=== PATIENT | female | born 1955 | race Two or more races ===

== ENCOUNTER 2016-11-28 14:24 | Emergency (ER) | payer BC, MEDICAID ==
[~2016-11-28] VITALS: Ht 157.5 cm; Wt 71.2 kg
[2016-11-28 14:24] VITALS: BP 151/80
== END 2016-11-28 15:38 | disposition home or self-care (01) ==
LOC: ER 14:26
DX: L03.031 Cellulitis of right toe (principal); M10.9 Gout, unspecified
CPT/HCPCS: A4606; Z7610

== ENCOUNTER 2016-12-03 11:44 | Emergency (ER) | payer BC, MEDICAID ==
[~2016-12-03] VITALS: Ht 157.5 cm; Wt 71.7 kg
[2016-12-03 11:47] VITALS: BP 123/70
[2016-12-03] MEDS ORDERED: KETOROLAC TROMETHAMINE INJ 30 MG/ML VIAL ONE (12:23)
[2016-12-03] MEDS ORDERED: MORPHINE SULFATE INJ 4 MG/ML DISP.SYRIN ONE (12:24)
[2016-12-03] MEDS ORDERED: ONDANSETRON 4 MG TAB.RAPDIS ONE (12:24)
[2016-12-03] MEDS ORDERED: ONDANSETRON 4 MG TAB.RAPDIS SL ONE (12:30)
[2016-12-03] MEDS ORDERED: KETOROLAC TROMETHAMINE INJ 60 MG/2 ML VIAL IM ONE (12:30)
[2016-12-03] MEDS ORDERED: MORPHINE SULFATE INJ 2 MG/ML DISP.SYRIN IM ONE (12:30)
== END 2016-12-03 13:25 | disposition home or self-care (01) ==
LOC: ER 11:48
DX: M54.42 Lumbago with sciatica, left side (principal); G89.29 Other chronic pain; M10.9 Gout, unspecified
CPT/HCPCS: 96372 ×2; 99284; A4606; J1885; J2270; Q0162; Z7610

== ENCOUNTER 2016-12-16 20:09 | Emergency (ER) | payer MEDICAID ==
[~2016-12-16] VITALS: Ht 157.5 cm; Wt 70.3 kg
[2016-12-16 20:16] VITALS: BP 127/79
== END 2016-12-16 21:12 | disposition home or self-care (01) ==
LOC: ER 20:11
DX: M79.675 Pain in left toe(s) (principal); J45.909 Unspecified asthma, uncomplicated; M10.9 Gout, unspecified; M19.90 Unspecified osteoarthritis, unspecified site
CPT/HCPCS: A4606; Z7610

== ENCOUNTER 2017-02-15 15:12 | Emergency (ER) | payer BC ==
[~2017-02-15] VITALS: Ht 157.5 cm; Wt 69.9 kg
--- NOTE | 2017-02-15 15:30 | NUR ---
BIB DAUGHTER C/O L SIDE BODY PAIN S/P SLIPPED AND FELL YESTERDAY, -KO. ALSO C/O HEADACHE. A/OX 4. BREATHING EVEN AND UNLABORED. NO SOB. VITALS STABLE. SAFETY AND COMFORT MEASURES IN PLACE. AWAITING MD ORDERS.
--- NOTE | 2017-02-15 15:35 | NUR ---
Patient discharged to home in stable condition. Written and verbal after care instructions given. Patient verbalizes understanding of instruction.
[2017-02-15 16:05] VITALS: BP 128/76
== END 2017-02-15 15:35 | disposition home or self-care (01) ==
LOC: ER 15:14
DX: S90.02XA Contusion of left ankle, initial encounter (principal); S40.012A Contusion of left shoulder, initial encounter; S80.02XA Contusion of left knee, initial encounter; J45.909 Unspecified asthma, uncomplicated; M10.9 Gout, unspecified; M19.90 Unspecified osteoarthritis, unspecified site; W01.0XXA Fall on same level from slipping, tripping and stumbling without subsequent striking against object, initial encounter; Y93.89 Activity, other specified; Y92.000 Kitchen of unspecified non-institutional (private) residence as the place of occurrence of the external cause; Y99.8 Other external cause status
CPT/HCPCS: 99283; A4606; Z7610

== ENCOUNTER 2017-06-27 11:25 | Emergency (ER) | payer BC, OTHER ==
[~2017-06-27] VITALS: Ht 157.5 cm; Wt 69.9 kg
[2017-06-27 11:32] VITALS: BP 118/76
[2017-06-27] MEDS ORDERED: SILVER SULFADIAZINE CREAM 25 GM TUBE ONE (11:54)
[2017-06-27] MEDS ORDERED: SILVER SULFADIAZINE CREAM 25 GM TUBE TP ONE (12:00)
== END 2017-06-27 12:13 | disposition home or self-care (01) ==
LOC: ER 11:29
DX: T24.232A Burn of second degree of left lower leg, initial encounter (principal); J45.909 Unspecified asthma, uncomplicated; M10.9 Gout, unspecified; M19.90 Unspecified osteoarthritis, unspecified site; F17.200 Nicotine dependence, unspecified, uncomplicated; X10.2XXA Contact with fats and cooking oils, initial encounter; Y93.89 Activity, other specified; Y92.89 Other specified places as the place of occurrence of the external cause; Y99.8 Other external cause status
CPT/HCPCS: A4606; Z7610

== ENCOUNTER 2017-10-01 13:08 | Emergency (ER) | payer BC, OTHER ==
[~2017-10-01] VITALS: Ht 157.5 cm; Wt 72.6 kg
--- NOTE | 2017-10-01 13:10 | NUR ---
AAOX3, CAME TO ER C/O LEFT SIDED CHEST PAIN RADIATES TO LEFT ARM SINCE 11PM LAST NIGHT. RR IS EVEN AND UNLABORED WITH NAD NOTED. SKIN IS WARM AND DRY. AWAITING MD FOR RANJIT. Addendum: 10/01/17 at 1328 by MELVINA PATIENT PLACED ON THE MONITOR. WILL CONTINUOUSLY MONITOR THE PATIENT.
[2017-10-01] MEDS ORDERED: ASPIRIN 81 MG TAB.CHEW PO ONE (13:30)
[2017-10-01] MEDS ORDERED: ASPIRIN 325 MG TABLET ONE (13:31)
[2017-10-01] MEDS ORDERED: ASPIRIN EC 81 MG TABLET.DR PO ONE (13:33)
[2017-10-01 13:48] LABS: BASOPHILS # (AUTO) 0.1 /CMM (0.0-0.2); BASOPHILS % (AUTO) 1.6 % (0.0-2.0); EOSINOPHILS % (AUTO) 1.2 % (0.0-6.0); HEMATOCRIT 40 % (33-45); HEMOGLOBIN 13.8 g/dL (11.5-14.8); LYMPHOCYTES # (AUTO) 1.4 /CMM (0.8-4.8); LYMPHOCYTES % (AUTO) 17.1 % (20.0-44.0); MEAN CORPUSCULAR HEMOGLOBIN 31 PG (26.0-33.0); MEAN CORPUSCULAR HGB CONC 35 g/dl (31.0-36.0); MEAN CORPUSCULAR VOLUME 89 fL (82-100); MONOCYTES # (AUTO) 0.4 /CMM (0.1-1.30); MONOCYTES % (AUTO) 4.6 % (2.0-12.0); NEUTROPHILS # (AUTO) 6.3 /CMM (1.8-8.9); NEUTROPHILS % (AUTO) 75.5 % (43.0-81.0); PLATELET COUNT (AUTO) 232 /CMM (150-450); RDW COEFFICIENT OF VARIATION 12.1 (11.5-15.0); RED BLOOD CELL COUNT(AUTO) 4.45 MIL/uL (4.0-5.2); WHITE BLOOD COUNT (AUTO) 8.3 K/uL (4.3-11.0)
[2017-10-01 13:51] LABS: CALCIUM, SERUM 8.8 mg/dL (8.5-10.1); CARBON DIOXIDE 29 mmol/L (21-32); CHLORIDE 107 mmol/L (98-107); CREATININE 0.9 mg/dL (0.6-1.3); GLUCOSE 100 mg/dL (74-106); POTASSIUM 4.4 mmol/L (3.5-5.1); SODIUM SERUM 141 mmol/L (136-145); UREA NITROGEN, BLOOD 17 mg/dL (7-18)
[2017-10-01 14:00] LABS: TROPONIN I < 0.017 ng/mL (0.00-0.056)
--- NOTE | 2017-10-01 14:50 | NUR ---
IV removed. Catheter intact and site benign. Pressure and 4x4 applied to site. No bleeding noted.
--- NOTE | 2017-10-01 14:51 | NUR ---
Patient discharged to home in stable condition. Written and verbal after care instructions given. Patient verbalizes understanding of instruction.
[2017-10-01 14:58] VITALS: BP 128/78
== END 2017-10-01 14:59 | disposition home or self-care (01) ==
LOC: ER 13:13
DX: S46.812A Strain of other muscles, fascia and tendons at shoulder and upper arm level, left arm, initial encounter (principal); M54.12 Radiculopathy, cervical region; M19.90 Unspecified osteoarthritis, unspecified site; J45.909 Unspecified asthma, uncomplicated; M10.9 Gout, unspecified; F17.200 Nicotine dependence, unspecified, uncomplicated; X50.0XXA Overexertion from strenuous movement or load, initial encounter; Y93.89 Activity, other specified; Y92.89 Other specified places as the place of occurrence of the external cause; Y99.8 Other external cause status
CPT/HCPCS: 36415; 71045-TC; 80048-TC; 84484-TC; 85025-TC; A4606; Z7610

== ENCOUNTER 2021-03-03 17:55 | Emergency (ER) | payer MEDICARE, OTHER ==
[~2021-03-03] VITALS: Ht 152.4 cm; Wt 72.6 kg
[2021-03-03 18:09] VITALS: BP 135/94
[2021-03-03] MEDS ORDERED: TDAP [DIPH/PERTUSSIS/TET] 0.5 ML VIAL IM ONE ×2 (18:28→18:30)
[2021-03-03] MEDS ORDERED: BACI/NEOM/POLY B OINT PKT 1 UDPKT PACKET TP ONE (18:30)
[2021-03-03] MEDS ORDERED: AMOX-430 PO (19:18)
== END 2021-03-03 19:24 | disposition home or self-care (01) ==
LOC: ER 18:13
DX: S61.032A Puncture wound without foreign body of left thumb without damage to nail, initial encounter (principal); J45.909 Unspecified asthma, uncomplicated; M10.9 Gout, unspecified; M19.90 Unspecified osteoarthritis, unspecified site; F17.200 Nicotine dependence, unspecified, uncomplicated; W54.0XXA Bitten by dog, initial encounter; Y93.89 Activity, other specified; Y92.89 Other specified places as the place of occurrence of the external cause; Y99.8 Other external cause status
CPT/HCPCS: 73130-TC; 90715